=== PATIENT | female | born 1935 | race Caucasian/White ===

== ENCOUNTER 2024-11-01 11:32 | Emergency (ER) | payer MEDICARE, BC, SELFPAY ==
[2024-11-01 11:36] VITALS: BP 138/80; BMI 26.2
[2024-11-01] MEDS: TYLENOL 1000 MG PO (13:14)
[2024-11-01 13:39] LABS: % Basophils 0.3 % (0-2); % Immature Granulocytes 0.9 % (0-0.5); % Monocytes 8.2 % (1.7-9.3); % Neutrophils 86.6 % (42.2-75.2); Absolute Immature Granulocytes 0.1 10^3/uL (0-0.05); Absolute Lymphocytes 0.6 10^3/uL (1.2-3.4); Absolute Monocytes 1.3 10^3/uL (0.1-0.6); Absolute Neutrophils 13.5 10^3/uL (1.4-6.5); Hematocrit 38.1 % (37.0-47.0); Hemoglobin 13.3 g/dL (12.0-16.0); Mean Corp Hgb Conc. 34.9 g/dL (33.0-37.0); Mean Corpuscular Hgb 32.9 pg (27.0-31.0); Mean Corpuscular Volume 94.3 fL (81.0-99.0); Mean Platelet Volume 9.2 fL (7.4-10.4); Nucleated Red Blood Cells % 0 %; Platelet Count 257 10^3/uL (130-400); Red Blood Cell Count 4.04 10^6/uL (4.20-5.40); Red Cell Dist. Width 12.6 % (11.5-14.5); White Blood Cell Count 15.6 10^3/uL (4.8-10.8)
--- NOTE | 2024-11-01 13:42 | ED.GENMED ---
History of Present Illness
General
Chief Complaint: Fall
Time Seen by Provider: 11/01/24 12:05
History of Present Illness
History of Present Illness:
89-year-old female with history of high blood pressure presenting to the emergency department after a fall. Patient notes chronic urinary incontinence. She got out of bed this morning and could not make it to the bathroom. She started peeing on
the rug and got upset so she tried to jimenez to the bathroom. She subsequently fell and struck her left ribs on a dresser. Denies head injury or loss of consciousness. She is not on any blood thinners. Reports pain with deep inspiration. Denies
fever. Denies chest pain or difficulty breathing. Does note for the past few weeks she has been feeling generally unwell. Denies abdominal pain. She did not have any medications for pain prior to arrival. Denies additional injuries from the fall
Phy Exam
Physical Exam
Physical Exam:
General: Well-appearing, no clinical signs of dehydration, nontoxic and in no acute distress
HEENT: protecting airway
Neck: appears supple
CV: Normal heart rate, irregularly irregular rhythm
Resp: No accessory muscle use, no increased work of breathing, lungs clear to auscultation bilaterally. Splinting secondary to pain with palpable tenderness to the upper mid axillary region of the left ribs. No ecchymosis or laceration
Abd: Soft and non-distended, no tenderness to palpation
Extremities: No deformities, no swelling
Neuro: alert, no focal neurologic deficit
: deferred
Rectal: deferred
Psych: Normal affect
Skin: Intact
Scores
[id number] Score for Afib Stroke Risk
Age in Years (65=0, 65-74=1, >/=75=2): > or = 75
Sex (Female=+1): Female
Congestive Heart Failure History (Yes=+1): No
Hypertension History (Yes=+1): Yes
Stroke/TIA/Thromboembolism History (Yes=+2): No
Vascular Disease History (Yes=+1): No
Diabetes Mellitus (Yes=+1): No
Score: 4
Anticoagulation Recommendations: Recommend anticoagulation (as validated in nonvalvular fib)
Course
Orders/Labs/Results
Orders:
Orders
11/01/24 13:13
Electrocardiogram (*1) Urgent
Reason for Study: Palpitations
EKG- Treatment ONCE
Acetaminophen [Tylenol] 1,000 mg .ROUTE .STK-MED ONE
Acetaminophen [Tylenol] 1,000 mg PO NOW STA
Acetaminophen [Tylenol] 1,000 mg PO NOW STA
CR Ribs-left 3 Vw W/pa Chest Urgent
Comment:
Reason For Exam: fall, pain
11/01/24 13:15
Complete Blood Count/With Diff Urgent
Comprehensive Metabolic Panel Urgent
11/01/24 14:43
UA Reflex to Culture [Urinalysis Reflex To Culture] Urgent
Date Specimen was Collected: 11/01/24
Time Specimen was Collected: 14:30
Urine Microscopic Reflex Cult Urgent
Urine Culture Urgent
ARA Source: U
Specimen Description:
Date Specimen was Collected: 11/01/24
Time Specimen was Collected: 14:30
11/01/24 15:34
Apixaban [Eliquis] 5 mg PO ONCE ONE
Cephalexin Monohydrate [Keflex] 500 mg PO NOW STA
Oxycodone/Acetaminophen [Percocet 5/325] 1 tablet PO NOW STA
11/01/24 15:35
Incentive Spirometry [Rx Incentive Spirometry] [RESP] Urgent
Frequency: q1h while awake
Abnormal Lab Results
11/01/24 11/01/24
13:15 14:43
WBC 15.6 H 10^3/uL
(4.8-10.8)
RBC 4.04 L 10^6/uL
(4.20-5.40)
MCH 32.9 H pg
(27.0-31.0)
Abs Immat Gran (auto) 0.1 H 10^3/uL
(0-0.05)
Absolute Neuts (auto) 13.5 H 10^3/uL
(1.4-6.5)
Absolute Lymphs (auto) 0.6 L 10^3/uL
(1.2-3.4)
Absolute Monos (auto) 1.3 H 10^3/uL
(0.1-0.6)
Immature Gran % 0.9 H %
(0-0.5)
Neutrophils % 86.6 H %
(42.2-75.2)
Lymphocytes % 4.0 L %
(20.5-51.1)
Sodium 128 L mmol/L
(135-145)
Chloride 93 L mmol/L
(98-107)
BUN 18 H mg/dl
(7-17)
Glucose 136 H mg/dl
(70-99)
Ur Occult Blood Reflex 4+ A
(Negative)
Urine Nitrite (Reflex) Positive A
(Negative)
Leukocyte Esterase Rfl 3+ A
(Negative)
Urine RBC 7-10 A /HPF
(0-2)
Urine WBC (Reflex) 11-15 A /HPF
(0-5)
Urine Bacteria (Reflex) Many A
(Negative)
Urine Albumin (Reflex) 3+ A
(Neg - Trace)
11/01/24 13:15
11/01/24 13:15
Vital Signs
Initial and Last Documented VS:
Initial Vital Signs
Temp Pulse Resp BP Pulse Ox
98 F 87 22 138/80 95
11/01/24 11:36 11/01/24 11:36 11/01/24 11:36 11/01/24 11:36 11/01/24 11:36
Last Documented Vital Signs
Temp Pulse Resp BP Pulse Ox
98 F 87 22 138/80 95
11/01/24 11:36 11/01/24 11:36 11/01/24 11:36 11/01/24 11:36 11/01/24 11:36
MDM/Problems Addressed
MDM/Problems Addressed:
89-year-old female with history of high blood pressure presenting after a fall onto her left ribs with subsequent pain. Vital signs on arrival significant for mild tachypnea.
On exam, patient is resting comfortably, no acute distress, slightly uncomfortable secondary to pain. Patient with generalized tenderness to the upper left mid axillary rib region. Concern for rib contusion versus rib fracture. No additional
signs of trauma. Patient denies any head injury or loss of consciousness. Incidentally, patient noted to be in A-fib on the monitor. No prior history. Does note that she has been feeling generally unwell for the past few weeks, has been tested
for COVID and flu, negative. Will obtain laboratory analysis and EKG. Will also obtain rib series.
15:30 -patient noted to have 2 rib fractures, consistent with symptoms. No pneumothorax. Also noted to be slightly hyponatremic at 128, suspected concomitant dehydration. Regarding new onset a flutter, [id number] score is 4, indicated
recommendation for anticoagulation. Did discuss with cardiology, in agreement for anticoagulation, holding on any antiarrhythmics given that heart rate is controlled. Discussed with and patient in detail regarding her rib fractures and
atrial fibrillation/flutter. Regarding the rib fractures, advised extra trying Tylenol primarily for pain, advised against ibuprofen given that she is being started on Eliquis. For severe pain, will prescribe low-dose Percocet at patient's
request, however did caution against somnolence, fall risk now on anticoagulation. Patient verbalized understanding. Will provide incentive spirometry. Regarding the atrial fibrillation, advising outpatient cardiology follow-up with cardiology
information provided. Eliquis sent to pharmacy and coupon provided for 1 free month. Strict return precautions were communicated to patient and at bedside verbalized understanding
*EKG
Interpreted by ED Provider?: Yes
EKG Intrepretation Date: 11/01/24
EKG Intrepretation Time: 13:49
Interpretation: abnormal
Comparison EKG: no comparison EKG present
Heart Rate: 91
Rate: normal
Rhythm: atrial flutter
[place]: normal axis
QRS Pattern: normal QRS
Ischemia: no ischemia
*Critical Care Note
Total Time (30-74mins, 75-104mins- exclusive of procedures): Not Applicable
ED Attending Note
-
Portions of this chart may have been created with voice recognition software.� Occasional wrong word or��sound alike� substitutions may have occurred due to the inherent limitations of voice recognition software.
Discharge Plan
Departure
Patient with high blood pressure during this ER visit?: No
Condition: Fair
Discharge Problem:
Atrial fibrillation/flutter, Ribs, multiple fractures
Instructions: Atrial fibrillation and atrial flutter - ED discharge instructions, Rib fracture or bruised rib - ED discharge instructions
Prescriptions:
New
cephalexin 500 mg capsule
500 mg PO Q12H 7 Days Qty: 14 0RF
oxycodone-acetaminophen [Percocet] 2.5-325 mg tablet
1 tab PO Q8H PRN (Reason: Pain) Qty: 9 0RF
Eliquis 5 mg tablet
5 mg PO BID Qty: 60 0RF
Referrals:
Walker Alonzo MD [Active] - (atrial fibrillation)
UNKNOWN - PT DOES,NOT KNOW [Family Provider] -
Activity Restrictions/Additional Instructions:
You were seen in the emergency department for a fall
You were found to have 2 rib fractures on your left side. Please continue to take pain medications as needed. Use your incentive spirometry to recruit appropriate lung movement bilaterally. Incidentally, you were found to be in atrial
fibrillation. 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 You were started on Eliquis to prevent formation of blood clots. Please take this medication twice a day as directed. You were also prescribed Percocet for your rib pain. Please be
cautious in taking this medication which can cause somnolence or lightheadedness.
Please follow-up closely with your primary care physician.
Return to the emergency department for any worsening of your symptoms, or any development of chest pain, difficulty breathing, abdominal pain with persistent vomiting and inability to tolerate food or liquid by mouth (concern for dehydration),
weakness, headache or confusion, fever greater than 100.4, or any additional symptoms that are concerning to you.
Thank you for choosing [facility].
Interventions
Interventions:
*Risk Screen - Suicide Last Done: 11/01/24 11:36
*General Assessment Last Done: 11/01/24 11:36
*Neglect/Abuse Screening Last Done: 11/01/24 11:36
ED-Musculoskeletal Assessment Last Done: 11/01/24 12:02
ED- Neurological Assessment Last Done: 11/01/24 12:02
ED-Skin Assessment Last Done: 11/01/24 12:02
Discharge Date and Time
Print Language: GREENLANDIC
[2024-11-01 13:48] LABS: ALT (SGPT) 22 U/L (0-35); AST (SGOT) 28 U/L (14-36); Albumin 3.8 g/dl (3.5-5.0); Alkaline Phosphatase 102 U/L (38-126); Blood Urea Nitrogen 18 mg/dl (7-17); Calcium 9.5 mg/dl (8.4-10.2); Carbon Dioxide 25 mmol/L (22-30); Chloride 93 mmol/L (98-107); Estimated Creatinine Clearance 34 ml/min; Glucose 136 mg/dl (70-99); Potassium 3.9 mmol/L (3.5-5.1); Sodium 128 mmol/L (135-145); Total Bilirubin 1.1 mg/dl (0.2-1.3); Total Protein 6.3 g/dl (6.3-8.2); eGFR > 60.00
[2024-11-01 14:58] LABS: Urine Albumin 3+ (Neg - Trace); Urine Bilirubin Negative (Negative); Urine Character Slightly Cloudy (Clear); Urine Color Yellow; Urine Glucose Negative (Negative); Urine Ketone Negative (Negative); Urine Leukocyte 3+ (Negative); Urine Nitrite Positive (Negative); Urine Occult Blood 4+ (Negative); Urine Urobilinogen Negative (Neg - 1+)
[2024-11-01 15:15] LABS: Urine Mucus Many
[2024-11-01 15:16] LABS: Urine Amorphous Seen
[2024-11-01 15:17] LABS: Urine Bacteria Many (Negative)
[2024-11-01] MEDS: PERCOCET 5/325 1 TABLET PO (16:05)
[2024-11-01] MEDS: ELIQUIS 5 MG PO (16:05)
[2024-11-01] MEDS: KEFLEX 500 MG PO (16:05)
== END 2024-11-01 16:43 | disposition home or self-care (01) ==
LOC: EMR 11:32
PROVIDERS: EMERGENCY PHYSICIAN Student in an Organized Health Care Education/Training Program
DX: S22.42XA Multiple fractures of ribs, left side, initial encounter for closed fracture (principal); W01.190A Fall on same level from slipping, tripping and stumbling with subsequent striking against furniture, initial encounter; I48.91 Unspecified atrial fibrillation; I48.92 Unspecified atrial flutter
CPT/HCPCS: 99285; 71101; 80053; 81003; 81015; 85025; 87086; 87088; 87186; 93005

== ENCOUNTER → 2024-12-03 11:02 | Outpatient (REF) | payer MEDICARE, BC, SELFPAY | LOC: HWRCS 11:02 | PROVIDERS: ATTENDING PHYSICIAN Internal Medicine; FAMILY PHYSICIAN Internal Medicine | DX: I48.0 Paroxysmal atrial fibrillation (principal); R01.1 Cardiac murmur, unspecified | CPT/HCPCS: 93306 ==

== ENCOUNTER 2025-04-05 02:46 | Inpatient (IN) | payer MEDICARE, BC, SELFPAY ==
[2025-04-04 19:17] VITALS: BP 175/94
[2025-04-04 19:48] LABS: Urine Character Clear (Clear)
[2025-04-04 19:49] LABS: Hematocrit 35.1 % (37.0-47.0); Hemoglobin 12.7 g/dL (12.0-16.0); Mean Corp Hgb Conc. 36.2 g/dL (33.0-37.0); Mean Corpuscular Volume 91.4 fL (81.0-99.0); Nucleated Red Blood Cells % 0 %; Platelet Count 164 10^3/uL (130-400); Red Cell Dist. Width 12.1 % (11.5-14.5)
[2025-04-04 19:55] LABS: Urine Squamous Cell 0-2 /LPF (Few)
[2025-04-04 19:56] LABS: Urine White Cell 21-25 /HPF (0-5)
[2025-04-04 20:00] LABS: ALT (SGPT) 19 U/L (0-35); AST (SGOT) 29 U/L (14-36); Albumin 4.2 g/dl (3.5-5.0); Alkaline Phosphatase 95 U/L (38-126); Blood Urea Nitrogen 25 mg/dl (7-17); Calcium 10.0 mg/dl (8.4-10.2); Carbon Dioxide 22 mmol/L (22-30); Chloride 99 mmol/L (98-107); Glucose 107 mg/dl (70-99); Potassium 3.9 mmol/L (3.5-5.1); Sodium 128 mmol/L (135-145); Total Protein 6.7 g/dl (6.3-8.2); eGFR > 60.00
[2025-04-04] MEDS: NSS 1000 IV (23:48)
--- NOTE | 2025-04-04 23:50 | ED.GENMED ---
History of Present Illness
<Stacey Galo DO, Resident - Last Filed: 04/05/25 15:12>
General
Chief Complaint: Urinary Symptoms
Source: patient
Time Seen by Provider: 04/04/25 23:02
History of Present Illness
History of Present Illness:
Patient is an 89 yo female with PMH of afib on eliquis, recurrent UTIs and chronic urinary incontinence presenting with a UTI and b/l abdominal pain on Day 3 of Macrobid prescribed by urologist. Patients symptoms continued to worsen while on
Macrobid.
Past History
<Stacey Galo DO, Resident - Last Filed: 04/05/25 15:12>
Past History
ED Past Medical History: Arrthythmia
Review of Systems
<Stacey Galo DO, Resident - Last Filed: 04/05/25 15:12>
Review of Systems
Constitutional: Reports chills
EENT: Reports no symptoms
Respiratory: Reports no symptoms
Cardiac: Reports no symptoms
ABD/GI: Reports abdominal pain (b/l on sides) and nausea (this morning)
: Reports dysuria and incontinence
Neurological: Reports no symptoms
Phy Exam
<Stacey Galo DO, Resident - Last Filed: 04/05/25 15:12>
General Physical Exam
General Presentation: no apparent distress
General age: appears stated age
General Skin: warm and dry
General Mental: alert
Cardiovascular Exam
Cardiovascular Exam: regular rate/rhythm
Heart Sounds: normal
Pulmonary Exam
Pulmonary Exam: lungs clear, no respiratory distress, no crackles and no wheezing
Gastrointestinal Exam
Gastrointestinal Exam: normal bowel sounds, non tender, soft and non distended
Neurological Exam
Neurological Exam: alert and oriented x3
Course
<Stacey Galo DO, Resident - Last Filed: 04/05/25 15:12>
Orders/Labs/Results
Orders:
Orders
04/04/25 19:40
Complete Blood Count/With Diff Urgent
Comprehensive Metabolic Panel Urgent
Urinalysis Reflex To Culture Urgent
Date Specimen was Collected: 04/04/25
Time Specimen was Collected: 19:22
Urine Microscopic Reflex Cult Urgent
Urine Culture Urgent
ARA Source: U
Specimen Description:
Date Specimen was Collected: 04/04/25
Time Specimen was Collected: 19:22
04/04/25 23:25
0.9% Sodium Chloride 1000 ml [Nss] 1,000 ml IV BOLUS
04/04/25 23:54
Lactic Acid Urgent
Blood Culture Q30M
ARA Source: Blood/Venous
Specimen Description:
04/05/25 00:05
CT Abd/pelvis W Iv Cont Stat
Comment:
Reason For Exam: abdominal pain
04/05/25 00:23
Bladder Scan- Treatment ONCE
04/05/25 01:33
Gentamicin Sulfate [Gentamicin] 130 mg 0.9% Sodium Chloride [Nss] 50 ml IV NOW
04/05/25 02:21
Admit/Transfer Patient As Directed
Co-Sign Provider:
Level of Care: Inpatient admission
Assign to:: Medical/Surgical
Physician / Group: Wilder
Diagnosis: Pyelonephritis
Reason for Hospitalization: Pyelonephritis
Expected length of stay greater than two midnights?: Yes
ELOS- Estimated Length of Stay in days: 2
I certify the patient meets the requirements for IP care: Yes
04/05/25 02:22
Code Status As Directed
Resuscitation Status: Full Code
PRN Pain Medication Management As Directed
May give lesser potent ordered pain med per pt: Yes
preference::
Protocol:: Medication orders for pain may be administered in a
manner that supports deferring to patient preference
when the pt is:
- Requesting an ordered lesser potent pain medication.
Least to most potent pain medications are defined
as: acetaminophen < NSAID < tramadol < opioids
(morphine, oxycodone, hydromorphone).
- Requesting a lesser dose of the same medication IF
ORDERED.
- Requesting a less intrusive route of administration
if both routes are prescribed by the provider (PO <
IV).
04/05/25 03:08
0.9% Sodium Chloride 1000 ml [Nss] 1,000 ml IV 100 mls/hr
Acetaminophen [Tylenol] 650 mg PO Q4HPRN PRN
04/05/25 03:08
Consult Notification Routine
Specialty to Notify: Infectious Disease
Date consulting provider notified: 04/05/25
Time consulting provider notified: 07:42
Notified:: Provider
INFECTIOUS DISEASE CONSULT Routine
Consulting Provider: Myriam Celestin
Was physician already notified: No
Reason for consult: Pyelo, Resistant E coli.
Activity As Directed
Activity Level: Ambulate
With Assistance
I/O [Intake/ Output] As Directed
Frequency: Per unit guidelines
Vital Signs As Directed
Frequency: Per unit guidelines
Weight As Directed
Frequency: Daily
Oxygen Therapy [O2 Therapy] [RESP] Routine
Titrate/Wean O2 to maintain O2 sat greater than (%): 94
04/05/25 04:00
Meropenem [Merrem] 500 mg IV Q6H
04/05/25 Breakfast
Regular
At Your Request: Limited, Water Pollution Control Technician Required
Does patient need a safe tray?: No
04/05/25 06:05
Basic Metabolic Panel IN AM
Complete Blood Count/No Diff IN AM
04/05/25 08:00
Amlodipine [Norvasc] 2.5 mg PO DAILY
Apixaban [Eliquis] 5 mg PO BID
Atorvastatin [Lipitor] 10 mg PO DAILY
Valsartan [Diovan] 160 mg PO DAILY
04/05/25 11:24
Blood Culture Q30M
ARA Source: Blood/Venous
Specimen Description:
Abnormal Lab Results
04/04/25
19:40
WBC 15.8 H 10^3/uL
(4.8-10.8)
RBC 3.84 L 10^6/uL
(4.20-5.40)
Hct 35.1 L %
(37.0-47.0)
MCH 33.1 H pg
(27.0-31.0)
Abs Immat Gran (auto) 0.1 H 10^3/uL
(0-0.05)
Absolute Neuts (auto) 13.6 H 10^3/uL
(1.4-6.5)
Absolute Lymphs (auto) 0.4 L 10^3/uL
(1.2-3.4)
Absolute Monos (auto) 1.7 H 10^3/uL
(0.1-0.6)
Neutrophils % 85.7 H %
(42.2-75.2)
Lymphocytes % 2.8 L %
(20.5-51.1)
Monocytes % 10.8 H %
(1.7-9.3)
Sodium 128 L mmol/L
(135-145)
BUN 25 H mg/dl
(7-17)
Glucose 107 H mg/dl
(70-99)
Ur Occult Blood Reflex 3+ A
(Negative)
Leukocyte Esterase Rfl 2+ A
(Negative)
Urine RBC 11-15 A /HPF
(0-2)
Urine WBC (Reflex) 21-25 A /HPF
(0-5)
Urine Bacteria (Reflex) Moderate A
(Negative)
Urine Albumin (Reflex) 3+ A
(Neg - Trace)
04/04/25 19:40
04/04/25 19:40
Vital Signs
Initial and Last Documented VS:
Initial Vital Signs
Temp Pulse Resp BP Pulse Ox
100.4 F H 108 16 175/94 94
04/04/25 19:17 04/04/25 19:17 04/04/25 19:17 04/04/25 19:17 04/04/25 19:17
Last Documented Vital Signs
Temp Pulse Resp BP Pulse Ox
98.3 F 95 17 160/80 94
04/05/25 14:12 04/05/25 14:12 04/05/25 14:12 04/05/25 14:12 04/05/25 14:12
<Rashmi Johnson, DO - Last Filed: 04/05/25 01:44>
Orders/Labs/Results
Orders:
Orders
04/04/25 19:40
Complete Blood Count/With Diff Urgent
Comprehensive Metabolic Panel Urgent
Urinalysis Reflex To Culture Urgent
Date Specimen was Collected: 04/04/25
Time Specimen was Collected: 19:22
Urine Microscopic Reflex Cult Urgent
Urine Culture Urgent
ARA Source: U
Specimen Description:
Date Specimen was Collected: 04/04/25
Time Specimen was Collected: 19:22
04/04/25 23:25
0.9% Sodium Chloride 1000 ml [Nss] 1,000 ml IV BOLUS
04/04/25 23:54
Lactic Acid Urgent
Blood Culture Q30M
ARA Source: Blood/Venous
Specimen Description:
04/05/25 00:05
CT Abd/pelvis W Iv Cont Stat
Comment:
Reason For Exam: abdominal pain
04/05/25 00:23
Bladder Scan- Treatment ONCE
04/05/25 01:33
Gentamicin Sulfate [Gentamicin] 130 mg 0.9% Sodium Chloride [Nss] 50 ml IV NOW
04/05/25 02:21
Admit/Transfer Patient As Directed
Co-Sign Provider:
Level of Care: Inpatient admission
Assign to:: Medical/Surgical
Physician / Group: Wilder
Diagnosis: Pyelonephritis
Reason for Hospitalization: Pyelonephritis
Expected length of stay greater than two midnights?: Yes
ELOS- Estimated Length of Stay in days: 2
I certify the patient meets the requirements for IP care: Yes
04/05/25 02:22
Code Status As Directed
Resuscitation Status: Full Code
PRN Pain Medication Management As Directed
May give lesser potent ordered pain med per pt: Yes
preference::
Protocol:: Medication orders for pain may be administered in a
manner that supports deferring to patient preference
when the pt is:
- Requesting an ordered lesser potent pain medication.
Least to most potent pain medications are defined
as: acetaminophen < NSAID < tramadol < opioids
(morphine, oxycodone, hydromorphone).
- Requesting a lesser dose of the same medication IF
ORDERED.
- Requesting a less intrusive route of administration
if both routes are prescribed by the provider (PO <
IV).
04/05/25 03:08
0.9% Sodium Chloride 1000 ml [Nss] 1,000 ml IV 100 mls/hr
Acetaminophen [Tylenol] 650 mg PO Q4HPRN PRN
04/05/25 03:08
Consult Notification Routine
Specialty to Notify: Infectious Disease
Date consulting provider notified: 04/05/25
Time consulting provider notified: 07:42
Notified:: Provider
INFECTIOUS DISEASE CONSULT Routine
Consulting Provider: Myriam Celestin
Was physician already notified: No
Reason for consult: Pyelo, Resistant E coli.
Activity As Directed
Activity Level: Ambulate
With Assistance
I/O [Intake/ Output] As Directed
Frequency: Per unit guidelines
Vital Signs As Directed
Frequency: Per unit guidelines
Weight As Directed
Frequency: Daily
Oxygen Therapy [O2 Therapy] [RESP] Routine
Titrate/Wean O2 to maintain O2 sat greater than (%): 94
04/05/25 04:00
Meropenem [Merrem] 500 mg IV Q6H
04/05/25 Breakfast
Regular
At Your Request: Limited, Water Pollution Control Technician Required
Does patient need a safe tray?: No
04/05/25 06:05
Basic Metabolic Panel IN AM
Complete Blood Count/No Diff IN AM
04/05/25 08:00
Amlodipine [Norvasc] 2.5 mg PO DAILY
Apixaban [Eliquis] 5 mg PO BID
Atorvastatin [Lipitor] 10 mg PO DAILY
Valsartan [Diovan] 160 mg PO DAILY
04/05/25 11:24
Blood Culture Q30M
ARA Source: Blood/Venous
Specimen Description:
Abnormal Lab Results
04/04/25
19:40
WBC 15.8 H 10^3/uL
(4.8-10.8)
RBC 3.84 L 10^6/uL
(4.20-5.40)
Hct 35.1 L %
(37.0-47.0)
MCH 33.1 H pg
(27.0-31.0)
Abs Immat Gran (auto) 0.1 H 10^3/uL
(0-0.05)
Absolute Neuts (auto) 13.6 H 10^3/uL
(1.4-6.5)
Absolute Lymphs (auto) 0.4 L 10^3/uL
(1.2-3.4)
Absolute Monos (auto) 1.7 H 10^3/uL
(0.1-0.6)
Neutrophils % 85.7 H %
(42.2-75.2)
Lymphocytes % 2.8 L %
(20.5-51.1)
Monocytes % 10.8 H %
(1.7-9.3)
Sodium 128 L mmol/L
(135-145)
BUN 25 H mg/dl
(7-17)
Glucose 107 H mg/dl
(70-99)
Ur Occult Blood Reflex 3+ A
(Negative)
Leukocyte Esterase Rfl 2+ A
(Negative)
Urine RBC 11-15 A /HPF
(0-2)
Urine WBC (Reflex) 21-25 A /HPF
(0-5)
Urine Bacteria (Reflex) Moderate A
(Negative)
Urine Albumin (Reflex) 3+ A
(Neg - Trace)
04/04/25 19:40
04/04/25 19:40
Vital Signs
Initial and Last Documented VS:
Initial Vital Signs
Temp Pulse Resp BP Pulse Ox
100.4 F H 108 16 175/94 94
04/04/25 19:17 04/04/25 19:17 04/04/25 19:17 04/04/25 19:17 04/04/25 19:17
Last Documented Vital Signs
Temp Pulse Resp BP Pulse Ox
98.3 F 95 17 160/80 94
04/05/25 14:12 04/05/25 14:12 04/05/25 14:12 04/05/25 14:12 04/05/25 14:12
<Stacey Galo DO, Resident - Last Filed: 04/05/25 15:12>
*Pulse Oximetry
SaO2: 94
Oxygen Mode of Delivery: Room air
Patient hypoxic: no
*Critical Care Note
Total Time (30-74mins, 75-104mins- exclusive of procedures): Not Applicable
ED Attending Note
<Stacey Galo DO, Resident - Last Filed: 04/05/25 15:12>
-
Portions of this chart may have been created with voice recognition software.� Occasional wrong word or��sound alike� substitutions may have occurred due to the inherent limitations of voice recognition software.
<Rashmi Johnson DO - Last Filed: 04/05/25 01:44>
ED Attending Note
Patient seen and examined by attending physician: Yes
I performed the substantive portion of visit, reviewed & personally made and approve the management plan that is documented in note by myself or [place].: Yes
ED Attending Note:
89-year-old woman who resides with her at [facility]. She has history of PAF, incidentally found during ED visit October of this year after suffering a mechanical fall, nondisplaced rib fractures. Was placed on
Eliquis which she continues. She also has history of frequent UTIs, urinary incontinence and follows with urology, Dr. Selina Pickard.
She has had UTI symptoms that began a week ago, urinalysis and urine culture from urologist earlier in the week and was started on Macrobid 2 days ago.
Urine culture returned today positive for multidrug-resistant E. coli. Resistant to cephalosporins, quinolones, most penicillins however sensitive to Zosyn, sensitive to gentamicin and sensitive to Macrobid. Patient was called today and
recommended to continue Macrobid however she presents tonight with complaints of intermittent chills and shakes that began over the weekend, worse tonight and she also notes bilateral lateral flank discomfort that began yesterday, worse today and
more so on the left. Intermittent brief nausea but has had no vomiting.
No prior history of pyelonephritis nor kidney stones.
Patient noted to be febrile upon arrival to the ED 100.4 �F. Mildly tachycardic. Mildly hypertensive.
89-year-old woman appears her stated age, awake and alert, pleasant, oriented x 3, appears in no acute distress.
Oral mucosa is moist.
Heart is mildly tachycardic
Lungs are clear to auscultation. No respiratory distress.
Abdomen is soft, nondistended, minimal tenderness suprapubic region with questionably mildly distended bladder, no definitive CVA tenderness bilaterally.
Patient presents with persistent UTI symptoms, recent urine culture positive for multidrug-resistant E. coli and thus far no improvement in symptoms despite 48 hours of Macrobid.
Concern for pyelonephritis, sepsis, other consideration is ureteral obstruction/ureteral stone.
Concern for urinary obstruction/bladder outlet obstruction. Will check postvoid residual with bladder scan.
Will initiate IV fluids. Will check CT abdomen and pelvis.
Will check lactic acid, urine culture, blood cultures.
Labs thus far reveal elevated white blood cell count of 15.8.
Chemistries show mild hyponatremia of 128, similar hyponatremia noted in October. Normal creatinine with mildly elevated BUN of 25.
Urinalysis shows moderate bacteria, 20-25 WBCs, 11-15 RBCs +2 leukocyte Estrace.
Due to advanced age, fever, essentially has failed outpatient antibiotics, patient will require IV antibiotics and hospitalization.
Postvoid bladder scan shows 120 cc in the bladder. Mild retention but certainly not requiring Willard catheter.
CAT scan shows mild bladder wall thickening as well as faint left ureteral enhancement and subtle asymmetric left perinephric stranding concerning for pyelonephritis on the left. There is also concern for heterogenous enhancement in the
contralateral right kidney which may reflect bilateral pyelonephritis. No evidence of stones nor obstruction.
Upon review of E. coli sensitivities on recent urine culture will give an IV dose of gentamicin.
Resistant to all cephalosporins. Sensitive to Zosyn thus could consider a trial of Zosyn versus patch test/penicillin sensitivity test. Will discuss with hospitalist.
Discharge Plan
Departure
Patient Disposition: Admit
Date of Disposition: 04/05/25
Time of Disposition: 01:40
Admit to: Med/Surg
Admit to doctor: Wilder
Presentation/result/management discussed w/ accepting MD/DO: Hospitalist
Condition: Fair
Discharge Problem:
Acute pyelonephritis, Fever, rule out sepsis
Interventions
Interventions:
*Risk Screen - Suicide Last Done: 04/04/25 19:17
*General Assessment Last Done: 04/04/25 19:17
*Neglect/Abuse Screening Last Done: 04/04/25 19:17
*ED- Fall Risk Assessment Last Done: 04/04/25 19:17
*ED COVID-19 Vaccine History Last Done: 04/04/25 19:17
*Nursing Disposition Last Done: 04/05/25 11:21
ED-Female Genitourinary Assessment Last Done: 04/05/25 00:02
Discharge Date and Time
Discharge Date/Time: 04/05/25 11:22
[2025-04-04 23:57] VITALS: BP 129/50
[2025-04-05] VITALS (8 sets, daily range): BP systolic 117–162; BP diastolic 52–80; BMI 26.5
[2025-04-05] MEDS: GENTAMICIN 53.25 MG IV (02:04)
--- NOTE | 2025-04-05 02:27 | HPS.HSE ---
Family Physician
-
Family Physician: Patti Iraheta
Chief Complaint
-
Dysuria, Fevers / Chills
History of Present Illness
Patient is an 89y F with PMH significant for OAB, recurrent UTI, A-Fib and hypertension who presents to ED complaining of dysuria, frequency and flank pain. Patient states that she started with urinary symptoms last week. She was seen by her
physician and started on Macrobid on Friday for UTI. Her symptoms have not improved since that time. She spoke with her physician today who recommended ED evaluation based on outpatient culture (04/04) which showed resistant E coli.
Patient reports intermittent fevers / chills. No N/V. She has pain bilaterally beneath the ribs - mostly laterally more than true 'flank pain'.
She states that she is chronically incontinent.
No GI complaints.
Medical History
Past Medical History
Past Medical History: Reports Other
Additional Past Medical History:
Paroxysmal Atrial Fibrillation
Hypertension
Chronic Incontinence
OAB
Recurrent UTI / Interstitial Cystitis
Past Surgical History: Reports Other
Additional Past Surgical History:
Right TKA
JENARO
Hemorrhoidectomy
Social History
Tobacco: Former Smoker (Quit smoking 45y ago.)
Alcohol: None
Drug: None
Family History
Family History: Not pertinent
Allergies / Home Medications
Allergies reflects when Allergies were last updated in [facility].
Home Medications with original date entered in [facility]
Allergy/Medication List:
Allergies
Allergy/AdvReac Type Severity Reaction Status Date / Time
amitriptyline (From Elavil) Allergy Unknown Verified 11/01/24 11:35
levofloxacin (From Levaquin) Allergy Unknown Verified 11/01/24 11:35
Penicillins Allergy Unknown Verified 11/01/24 11:35
sulfamethoxazole (From Allergy Unknown Verified 11/01/24 11:35
Bactrim)
trimethoprim (From Bactrim) Allergy Unknown Verified 11/01/24 11:35
vancomycin Allergy Unknown Verified 11/01/24 11:35
Home Medications
apixaban 5 mg tablet (Eliquis) 5 mg PO BID #60 tabs 11/01/24
amlodipine 2.5 mg tablet 2.5 mg PO DAILY 04/05/25
atorvastatin 10 mg tablet 10 mg PO DAILY 04/05/25
triamterene 37.5 mg-hydrochlorothiazide 25 mg capsule 1 cap PO DAILY 04/05/25
valsartan 160 mg tablet (Diovan) 160 mg PO DAILY 04/05/25
Review of Systems
-
History Source: Patient
A 12 point ROS was completed and negative except as noted: Yes
Constitutional: Reports Fever, Fatigue and Chills
Respiratory: Denies Cough or Trouble Breathing
Cardiac: Denies Chest Pain or Palpitations
Abdomen/GI: Denies Abdominal Pain, Nausea, Vomiting or Diarrhea
: Reports Dysuria, Frequency, Flank Pain and Incontinence; Denies Bleeding
Musculoskeletal: Denies Joint Pain or Edema
Neurological: Denies Dizzy or Headache
Physical Exam
Vital Signs
Vital Signs
Temp Pulse Resp BP Pulse Ox
100.4 F H 108 16 154/76 94
04/04/25 19:17 04/04/25 19:17 04/04/25 19:17 04/05/25 01:17 04/05/25 01:17
Physical Exam
General: Other (89y F in no acute distress. Hard of hearing.)
HEENT: Moist mucous membranes and PERRLA
Respiratory: Clear; No Wheezes, Rales or Rhonchi
Cardiac: S1/S2, Regular Rhythm and Murmur (II/ LIBORIO)
GI: Soft, Non Tender, Non Distended and Normal Bowel Sounds
Genito-urinary: Other (Pos L CVAT.)
Musculoskeletal: No Clubbing, No Cyanosis and Other (Chronic venous stasis with non-pitting edema.)
Neuro: AO x 3
Laboratory Results
-
04/04/25 19:40
04/04/25 19:40
Laboratory Results
Lactic Acid 1.7 mmol/L (0.7-2.0) 04/04/25 23:54
Total Bilirubin 1.2 mg/dl (0.2-1.3) 04/04/25 19:40
AST 29 U/L (14-36) 04/04/25 19:40
ALT 19 U/L (0-35) 04/04/25 19:40
Alkaline Phosphatase 95 U/L (38-126) 04/04/25 19:40
Impression/Plan
-
A/P: Patient is an 89y F with PMH significant for A-Fib, hypertension and OAB who presents to ED complaining of urinary symptoms and fevers.
Pyelonephritis
Sepsis secondary to the above
- Admit for further evaluation and treatment.
- Patient presents with fever, leukocytosis, tachycardia and UA / symptoms consistent with infection.
- Outpatient record includes urinary culture from 04/04 showing > 100k CFU of E coli with multiple resistances.
- Sensitive to: Ertapenem, meropenem, nitrofurantoin and Bactrim.
- Patient reports allergies to PCN and Bactrim - but cannot recall reactions as it was 'a long time ago'.
- Nitrofurantoin has been ineffective after 48+ hours of treatment.
- Will try meropenem for now and monitor for clinical improvement or any reaction / intolerance.
- ID evaluation for additional recommendations.
- Follow-up repeat culture data.
- IVFs, supportive care.
Hyponatremia
- Apparently chronic with same Na level (128) noted in October.
- Would stop Dyazide.
- Follow for changes with IVF overnight (for sepsis not hyponatremia).
Paroxysmal Atrial Fibrillation
- Stable. Continue Eliquis for stroke risk reduction.
Benign Hypertension
- Stable. Continue outpatient regimen - excepting Dyazide - adjust as needed.
DVT Prophylaxis: On Eliquis
Code Status: Full
[2025-04-05] MEDS: NSS 1000 IV (04:22)
[2025-04-05] MEDS: STERILE WATER FOR INJECTION 10 ML IV ×4 (04:23→21:24)
[2025-04-05] MEDS: MERREM 500 MG IV ×4 (04:23→21:24)
[2025-04-05] MEDS: TYLENOL 650 MG PO (04:29)
[2025-04-05 06:22] LABS: Hematocrit 31.3 % (37.0-47.0); Hemoglobin 11.2 g/dL (12.0-16.0); Mean Corp Hgb Conc. 35.8 g/dL (33.0-37.0); Mean Corpuscular Volume 92.6 fL (81.0-99.0); Platelet Count 156 10^3/uL (130-400); Red Cell Dist. Width 12.2 % (11.5-14.5)
[2025-04-05 06:51] LABS: Blood Urea Nitrogen 17 mg/dl (7-17); Calcium 8.7 mg/dl (8.4-10.2); Carbon Dioxide 23 mmol/L (22-30); Chloride 102 mmol/L (98-107); Glucose 115 mg/dl (70-99); Potassium 3.6 mmol/L (3.5-5.1); Sodium 129 mmol/L (135-145); eGFR > 60.00
[2025-04-05] MEDS: DIOVAN 160 MG PO (09:57)
[2025-04-05] MEDS: ELIQUIS 5 MG PO ×2 (09:59→21:23)
--- NOTE | 2025-04-05 11:22 | CON.ID ---
Consultation
-
Date/Time Consultation Requested: April 05, 2025 0308
Date/Time Consultation Performed: April 05, 2025 1125
Requesting Provider: Dr. Luis Valadez
Performing Provider: Dr. Myriam Celestin
Reason for Consultation: Pyelonephritis, resistant E. coli
Chief Complaint / Past History
Chief Complaint
Fever
History of Present Illness
89-year-old female with history of paroxysmal atrial fibrillation, urinary incontinence, overactive bladder which she follows with urology who presented to the hospital last night due to fever and bilateral flank pain. She has history of recurrent
UTI with multidrug-resistant E. coli. She developed increased dysuria and frequency about a week ago. Her urologist put her on nitrofurantoin. However she continued to feel worse with onset of fevers, chills, malaise, and bilateral side pain. In
the ER temperature 100.5, white count of 15.8. CAT scan of the abdomen pelvis shows left perinephric stranding patient is currently on meropenem. Patient reports of flank pain have resolved today. She wants to go home because she cannot sleep in
the hospital. She reports remote history of lip swelling with penicillin. She could not recall reaction to sulfa but it was not serious. She states she is willing to try Bactrim again.
Past History
Additional Past Medical History:
Hypertension
Paroxysmal atrial fibrillation
Overactive bladder
Urinary incontinence
ESBL-Ecoli in urine
Additional Past Surgical History:
Right TKA
Hemorrhoidectomy
Total abdominal hysterectomy
Allergy History:
amitriptyline (From Elavil) Allergy (Verified 11/01/24 11:35)
Unknown
levofloxacin (From Levaquin) Allergy (Verified 11/01/24 11:35)
Unknown
Penicillins Allergy (Verified 11/01/24 11:35)
Unknown
sulfamethoxazole (From Bactrim) Allergy (Verified 11/01/24 11:35)
Unknown
trimethoprim (From Bactrim) Allergy (Verified 11/01/24 11:35)
Unknown
vancomycin Allergy (Verified 11/01/24 11:35)
Unknown
Medications Reviewed: Yes
Current Antibiotics:
Meropenem 500 mg IV every 6 hours
Social History
Tobacco: Former Smoker
Alcohol: None
Drug: None
Personal:
Family History
Family History: Not Pertinent
Review of Systems
Review of Systems
General: Fever, Chills and Change in Appetite
HEENT: Negative Sinus Problems or Headache
Cardiovascular: Negative Chest Pain
Respiratory: Negative Dyspnea or Cough
Gasteroenterology: Negative Nausea, Vomiting or Diarrhea
Genital / Urological: Dysuria and Flank Pain
Endocrine: Weakness
All systems: All other systems were reviewed and were negative
Vital Signs
Temp Pulse Resp BP Pulse Ox
98 F 65 16 118/66 95
04/05/25 07:00 04/05/25 09:57 04/05/25 08:16 04/05/25 09:57 04/05/25 08:16
Selected Entries
04/04/25
19:17 04/05/25
04:17
Temp 100.4 F H 100.5 F H
Physical Exam
Physical Exam
Constitutional: Acutely Ill
Eyes: No Conjunctival Hemorrhage and Sclera Anicteric
Cardiovascular: Regular Rate and S1/S2
Pulmonary: Clear
Gastrointestinal: Soft, Non Tender, Non Distended and Normal Bowel Sounds
Genito-Urinary: Negative CVA Tenderness
Extremities: Negative Edema
Neurological: AO x 3
Lab / Diagnostic Study Results
04/05/25 06:05
04/05/25 06:05
Abs Immat Gran (auto) 0.1 10^3/uL (0-0.05) H 04/04/25 19:40
Absolute Neuts (auto) 13.6 10^3/uL (1.4-6.5) H 04/04/25 19:40
Absolute Lymphs (auto) 0.4 10^3/uL (1.2-3.4) L 04/04/25 19:40
Absolute Monos (auto) 1.7 10^3/uL (0.1-0.6) H 04/04/25 19:40
Absolute Basos (auto) 0.1 10^3/uL (0-0.2) 04/04/25 19:40
Immature Gran % 0.3 % (0-0.5) 04/04/25 19:40
Neutrophils % 85.7 % (42.2-75.2) H 04/04/25 19:40
Lymphocytes % 2.8 % (20.5-51.1) L 04/04/25 19:40
Monocytes % 10.8 % (1.7-9.3) H 04/04/25 19:40
Eosinophils % 0.1 % (0-6) 04/04/25 19:40
Basophils % 0.3 % (0-2) 04/04/25 19:40
Lactic Acid 1.7 mmol/L (0.7-2.0) 04/04/25 23:54
Ur Squamous Epith Cells 0-2 /LPF (Few) 04/04/25 19:40
Microbiology Results
Micro:
04/04/25 23:54 Blood Culture - Pending
Blood/Venous
04/04/25 19:40 Urine Culture - Pending
Urine
04/05/25 CT a/p: There is mild urinary bladder wall thickening suspicious for cystitis. Additionally there is asymmetric left perinephric stranding with heterogeneity of the left kidney which likely represents pyelonephritis. There is no evidence of
obstructing renal calculus.
Assessment / Plan
# MDR- E. coli complicated UTI/pyelonephritis
# Fever
# Leukocytosis
- Review of 7/22/25 outside Ucx: E. coli resistant to cephalosporins, Zosyn, FQ, aminoglycosides, tetracycline. Sensitive to Ertapenem, meropenem, T/sulfa, nitrofurantoin.
- Await blood cultures and Ucx.
- Agree with meropenem.
- Trend temps/wbc.
- Convinced patient to stay in hospital as no effective oral abx option.
- When close to discharge, place midline for Ertapenem 1g IV q24h through 04/18/25.
Infusion sheet submitted to casework supervisor.
-Place in contact isolation
Care Review
Plan reviewed with: Physician (Dr. Valadez)
[2025-04-05] MEDS: DUONEB 3 ML INH (11:50)
--- NOTE | 2025-04-05 12:51 | CM ---
CM reviewed chart and met with pt bedside. Pt lives in AR apt at [facility] with her .
Independent in ADLs, personal care and ambulation. Uses rollator.
No hx VN or SNF.
PCP: Patti Iraheta
Pharmacy: [facility] [place] [facility]
Discharge plan: Anticipate home, watch for needs
--- NOTE | 2025-04-05 13:22 | PTCARENOTE ---
Reached out to MD Valadez about pt's need for 2L NC, wheezing, and new sob on exertion. Chest x ray and echo are now ordered. IVF stopped per order
--- NOTE | 2025-04-05 13:42 | W.PN.HOSP.TC ---
Today's Communication/Plan
-
IV abx
ID eval
Stop fluids
CXR, may require lasix
Assessment / Plan
Assessment / Plan
Physical Exam
General: Other (89y F in no acute distress. Hard of hearing.)
HEENT: Moist mucous membranes and PERRLA
Respiratory: Clear;b/l mild wheezing requiring o2 NC
Cardiac: S1/S2, Regular Rhythm and Murmur (II/ LIBORIO)
GI: Soft, Non Tender, Non Distended and Normal Bowel Sounds
Genito-urinary: Other (Pos L CVAT.)
Musculoskeletal: No Clubbing, No Cyanosis and Other (Chronic venous stasis with non-pitting edema.)
Neuro: AO x 3
A/P: Patient is an 89y F with PMH significant for A-Fib, hypertension and OAB who presents to ED complaining of urinary symptoms and fevers.
Pyelonephritis
Sepsis secondary to the above
- Admit for further evaluation and treatment.
- Outpatient record includes urinary culture from 04/04 showing > 100k CFU of E coli with multiple resistances.
- Sensitive to: Ertapenem, meropenem, nitrofurantoin and Bactrim.
- Patient reports allergies to PCN and Bactrim - but cannot recall reactions as it was 'a long time ago'.
- Nitrofurantoin has been ineffective after 48+ hours of treatment.
- Will try meropenem
- ID evaluation
- Follow-up repeat culture data.
- IVFs, supportive care.
Acute Hypoxia
-2L
-Stop Fluids
-wean o2 as tolerated
-F/u CXR
-proBNP 1300s
-May need IV diuretics for possible Acute HfPEF
-Estimated LVEF 60-65%. - ECHO 12/03/24
Hyponatremia
- Apparently chronic with same Na level (128) noted in October.
- Would stop Dyazide.
-Fluid restriction
-may need diuretics
Paroxysmal Atrial Fibrillation
- Stable. Continue Eliquis for stroke risk reduction.
Benign Hypertension
- Stable. Continue outpatient regimen - excepting Dyazide - adjust as needed.
DVT Prophylaxis: On Eliquis
Code Status: Full
Anticipated Discharge: 24 - 48 hours
Subjective/Interval History
-
Date of Service: April 05, 2025
wheezing requiring 2L
Objective Data
-
Labs:
Laboratory Results
04/05/25
06:05
WBC 13.5 H
Hgb 11.2 L
Hct 31.3 L
Plt Count 156
Sodium 129 L
Potassium 3.6
Chloride 102
Carbon Dioxide 23
BUN 17
Creatinine 0.7
Glucose 115 H
Calcium 8.7
Vital Signs:
Vital Signs
Temp Pulse Resp BP Pulse Ox
98 F 83 16 118/66 99
04/05/25 07:00 04/05/25 11:56 04/05/25 11:56 04/05/25 09:57 04/05/25 11:56
I&O
04/04/25 04/05/25 04/06/25
06:59 06:59 06:59
Intake Total 640 / 640
Balance 640 / 640
Review of Systems
-
History Source: Patient
All other systems: Not reviewed unless documented
Data Reviewed
-
CT Scan: Report Reviewed by me
Labs: Labs Reviewed by me
--- NOTE | 2025-04-05 14:12 | CM ---
Addendum entered by Julissa Carlson 04/05/25 14:47:
[facility] Liaison in to see patient today and do teaching. Patient with hands shaking possible due to being cold. Patient was able to connect perform the task and thinks she can do this at home. She stated her (who has Parkinsons) will be
able to administer. They are independent at home, spouse drives. Cheryl from [facility] is also reaching out to patients daughter in law, she is an occupational therapist and lives within 30 minutes of the patient. Patient says she can be the back
up. Mak will do teaching in the home . Cheryl will touch base with manager of case management in am to confirm details. Hopefully patient will be able to receive dose here and d/c home tomorrow.
[facility] is running insurance and pricing medications, midline will need to be placed in am.
Original Note:
Patient seen bedside.
Plan is for home with IV anbx.
Clinicals and script faxed to [facility], referral and script sent to [facility] for nursing.
[facility] to do teaching tomorrow.
Patient wants her spouse to learn the antibiotic administration.
Midline still needs to be placed.
Patient currently on oxygen.
Script placed on chart.
Plan: home with IV anbx thru [facility] and [facility] VN.
[2025-04-05] MEDS: LIPITOR 10 MG PO (21:24)
[2025-04-05] MEDS: NORVASC 2.5 MG PO (21:28)
[2025-04-05] MEDS: XANAX PO (21:29)
[2025-04-06] MEDS: TYLENOL 650 MG PO (02:18)
[2025-04-06 04:28] VITALS: BMI 26.2
[2025-04-06] MEDS: STERILE WATER FOR INJECTION 10 ML IV ×4 (04:51→20:51)
[2025-04-06] MEDS: MERREM 500 MG IV ×4 (04:51→20:51)
--- NOTE | 2025-04-06 06:17 | PTCARENOTE ---
Pt slept well overnight. Pt using the BSC with assist to void. Bed alarm in place, pt using call herrera appropriately. Pt very INUPIAT without hearing aids. Vital signs stable. Will continue to monitor.
[2025-04-06 07:55] VITALS: BP 117/59
[2025-04-06 08:57] LABS: Hematocrit 35.6 % (37.0-47.0); Hemoglobin 12.7 g/dL (12.0-16.0); Mean Corp Hgb Conc. 35.7 g/dL (33.0-37.0); Mean Corpuscular Volume 93.4 fL (81.0-99.0); Platelet Count 185 10^3/uL (130-400); Red Cell Dist. Width 12.3 % (11.5-14.5)
[2025-04-06] MEDS: DIOVAN 160 MG PO (09:30)
[2025-04-06] MEDS: ELIQUIS 5 MG PO ×2 (09:30→20:55)
--- NOTE | 2025-04-06 09:35 | W.PN.ID1 ---
Date of Service
Date of Service: April 06, 2025
Today's Communication
Repeat blood cx's.
Continue meropenem.
Assessment / Plan
# MDR- E. coli complicated UTI/pyelonephritis
# MDR-E. coli bacteremia
# Fever - resolving
# Leukocytosis - improving
- Review of 03/29/25 outside Ucx: E. coli resistant to cephalosporins, Zosyn, FQ, aminoglycosides, tetracycline. Sensitive to Ertapenem, meropenem, T/sulfa, nitrofurantoin.
- Repeat blood cx's today
- Continue meropenem.
- Trend temps/wbc.
- When close to discharge, place midline for Ertapenem 1g IV q24h through 04/18/25.
Infusion sheet submitted to [employer].
-Continue contact isolation
Chief Complaint
-: UTI and Bacteremia
Subjective / Review of Systems
Slept very well last night. Had sweats last night. Feels better today.
Vital Signs / Physical Exam
Vital Signs
Vital Signs
Temp Pulse Resp BP Pulse Ox
98.4 F 99 20 117/59 94
04/06/25 07:55 04/06/25 07:55 04/06/25 07:55 04/06/25 07:55 04/06/25 07:55
Physical Exam
Constitutional: No Acute Distress and Comfortable
Cardiovascular: Regular Rate and S1/S2
Pulmonary: Clear
Gastrointestinal: Soft, Non Tender, Non Distended and Normal Bowel Sounds
Genito-Urinary: Negative CVA Tenderness
Extremities: Negative Edema
Neurological: AO x 3
Objective Data
Lab Data
Lab Results
04/06/25 08:39
Lactic Acid 1.7 mmol/L (0.7-2.0) 04/04/25 23:54
Total Bilirubin 1.2 mg/dl (0.2-1.3) 04/04/25 19:40
AST 29 U/L (14-36) 04/04/25 19:40
ALT 19 U/L (0-35) 04/04/25 19:40
Alkaline Phosphatase 95 U/L (38-126) 04/04/25 19:40
Most recent labs reviewed.
Micro Results:
04/04/25 23:54 Blood Culture - Preliminary
Blood/Venous Positive culture in progress
Gram Stain - Preliminary
04/05/25 11:24 Blood Culture - Pending
Blood/Venous
04/04/25 19:40 Urine Culture - Pending
Urine
04/05/25 CT a/p: There is mild urinary bladder wall thickening suspicious for cystitis. Additionally there is asymmetric left perinephric stranding with heterogeneity of the left kidney which likely represents pyelonephritis. There is no evidence of
obstructing renal calculus.
[2025-04-06 09:51] LABS: ALT (SGPT) 17 U/L (0-35); AST (SGOT) 26 U/L (14-36); Albumin 3.5 g/dl (3.5-5.0); Alkaline Phosphatase 82 U/L (38-126); Blood Urea Nitrogen 16 mg/dl (7-17); Calcium 9.5 mg/dl (8.4-10.2); Carbon Dioxide 25 mmol/L (22-30); Chloride 100 mmol/L (98-107); Estimated Creatinine Clearance 38 ml/min; Glucose 106 mg/dl (70-99); Potassium 3.5 mmol/L (3.5-5.1); Sodium 130 mmol/L (135-145); Total Protein 5.9 g/dl (6.3-8.2); eGFR > 60.00
--- NOTE | 2025-04-06 10:19 | CM ---
Addendum entered by Julissa Carlson 04/06/25 13:56:
Per MD another 24-48 hours. Left VM for Bren/Mak and message sent to Cheryl/[facility].
Original Note:
Per [facility] patients IV anbx are covered 100% with her secondary insurance.
Await medical clearance and midline for d/c.
If patient is to be d/c today, would need to receive todays dose of antibiotic prior to d/c.
--- NOTE | 2025-04-06 12:37 | CM ---
Reviewed the chart notes and spoke with the patient at the bedside. IMM reviewed and copy provided to patient.
--- NOTE | 2025-04-06 13:23 | W.PN.HOSP.TC ---
Today's Communication/Plan
-
Await blood cultures repeated today
Assessment / Plan
Assessment / Plan
Physical Exam
General: Other (89y F in no acute distress. Hard of hearing.)
HEENT: Moist mucous membranes and PERRLA
Respiratory: Clear;b/l mild wheezing requiring o2 NC
Cardiac: S1/S2, Regular Rhythm and Murmur (II/ LIBORIO)
GI: Soft, Non Tender, Non Distended and Normal Bowel Sounds
Genito-urinary: Other (Pos L CVAT.)
Musculoskeletal: No Clubbing, No Cyanosis and Other (Chronic venous stasis with non-pitting edema.)
Neuro: AO x 3
A/P: Patient is an 89y F with PMH significant for A-Fib, hypertension and OAB who presents to ED complaining of urinary symptoms and fevers.
Pyelonephritis
Sepsis secondary to the above
- Admit for further evaluation and treatment.
- Outpatient record includes urinary culture from 04/04 showing > 100k CFU of E coli with multiple resistances.
- Sensitive to: Ertapenem, meropenem, nitrofurantoin and Bactrim.
- Patient reports allergies to PCN and Bactrim - but cannot recall reactions as it was 'a long time ago'.
- Nitrofurantoin has been ineffective after 48+ hours of treatment.
- Will try meropenem
- ID evaluation
- Follow-up repeat culture data.
- IVFs, supportive care.
Acute Hypoxia, resolved
-Stop Fluids
�I suspect atelectasis, deep improvement
� Now resolved
-Estimated LVEF 60-65%. - ECHO 12/03/24
Hyponatremia
- Apparently chronic with same Na level (128) noted in October.
- Would stop Dyazide.
-Fluid restriction
Paroxysmal Atrial Fibrillation
- Stable. Continue Eliquis for stroke risk reduction.
Benign Hypertension
- Stable. Continue outpatient regimen - excepting Dyazide - adjust as needed.
DVT Prophylaxis: On Eliquis
Code Status: Full
Anticipated Discharge: Within 24 hours
Subjective/Interval History
-
Date of Service: April 06, 2025
No acute events, respiratory status improved
Objective Data
-
Labs:
Laboratory Results
04/06/25
08:39
WBC 11.3 H
Hgb 12.7
Hct 35.6 L
Plt Count 185
Sodium 130 L
Potassium 3.5
Chloride 100
Carbon Dioxide 25
BUN 16
Creatinine 0.8
Glucose 106 H
Calcium 9.5
Total Bilirubin 0.8
AST 26
ALT 17
Alkaline Phosphatase 82
Vital Signs:
Vital Signs
Temp Pulse Resp BP Pulse Ox
98.4 F 99 20 117/59 94
04/06/25 07:55 04/06/25 07:55 04/06/25 07:55 04/06/25 07:55 04/06/25 08:03
I&O
04/05/25 04/06/25 04/07/25
06:59 06:59 06:59
Intake Total 640 / 640
Balance 640 / 640
Review of Systems
-
History Source: Patient
All other systems: Not reviewed unless documented
Data Reviewed
-
CT Scan: Report Reviewed by me
Labs: Labs Reviewed by me
--- NOTE | 2025-04-06 15:44 | VATNOTE ---
Order received to place midline for ABX until 04/18. This VAT RN spoke to Dr. Celestin b/c blood cultures were drawn today and are pending. Per Dr. Celestin, midline not to be placed today, possibly tomorrow if blood cultures are negative. Will assess
tomorrow.
[2025-04-06 16:05] VITALS: BP 123/66
[2025-04-06 17:21] VITALS: BP 115/50
[2025-04-06] MEDS: LIPITOR 10 MG PO (20:51)
[2025-04-06] MEDS: NORVASC 2.5 MG PO (20:51)
[2025-04-06] MEDS: XANAX 0.5 MG PO (20:51)
[2025-04-06] MEDS: COLACE 100 MG PO (21:54)
[2025-04-06 23:19] VITALS: BP 120/68
[2025-04-07] MEDS: MERREM 500 MG IV (03:25)
[2025-04-07] MEDS: STERILE WATER FOR INJECTION 10 ML IV (03:25)
[2025-04-07 06:51] LABS: Hematocrit 29.4 % (37.0-47.0); Hemoglobin 10.5 g/dL (12.0-16.0); Mean Corp Hgb Conc. 35.7 g/dL (33.0-37.0); Mean Corpuscular Volume 92.2 fL (81.0-99.0); Platelet Count 161 10^3/uL (130-400); Red Cell Dist. Width 12.1 % (11.5-14.5)
[2025-04-07 07:00] VITALS: BP 119/58
[2025-04-07] MEDS: DIOVAN 160 MG PO (08:19)
[2025-04-07] MEDS: COLACE 100 MG PO (08:19)
[2025-04-07] MEDS: ELIQUIS 5 MG PO (08:19)
[2025-04-07] MEDS: MIRALAX 17 GRAMS PO (08:19)
[2025-04-07 08:25] LABS: ALT (SGPT) 17 U/L (0-35); AST (SGOT) 26 U/L (14-36); Albumin 2.9 g/dl (3.5-5.0); Alkaline Phosphatase 64 U/L (38-126); Blood Urea Nitrogen 25 mg/dl (7-17); Calcium 8.8 mg/dl (8.4-10.2); Carbon Dioxide 24 mmol/L (22-30); Chloride 100 mmol/L (98-107); Estimated Creatinine Clearance 38 ml/min; Glucose 99 mg/dl (70-99); Potassium 3.4 mmol/L (3.5-5.1); Sodium 127 mmol/L (135-145); Total Protein 4.9 g/dl (6.3-8.2); eGFR > 60.00
[2025-04-07] MEDS: DUONEB 3 ML INH (08:34)
[2025-04-07] MEDS: KCL ELIXIR 40 MEQ PO (08:58)
[2025-04-07] MEDS: INVANZ 60 MG IV (10:20)
--- NOTE | 2025-04-07 11:51 | W.PN.ID1 ---
Date of Service
Date of Service: April 07, 2025
Today's Communication
- OK to place midline today.
- Ertapenem 1g IV q24h through 04/18/25.
Infusion sheet submitted to nurse case manager.
- OK to dc home when home IV abx set up.
Assessment / Plan
# MDR- E. coli complicated UTI/pyelonephritis
# MDR-E. coli bacteremia (1 of 2 sets)
# Fever - resolved
# Leukocytosis - resolved
- Review of 03/29/25 outside Ucx: E. coli resistant to cephalosporins, Zosyn, FQ, aminoglycosides, tetracycline. Sensitive to Ertapenem, meropenem, T/sulfa, nitrofurantoin.
- Repeat blood cx's x 2 neg 24h
- OK to place midline today.
- Replace meropenem with ertapenem
- Ertapenem 1g IV q24h through 04/18/25.
Infusion sheet submitted to nurse case manager.
- OK to dc home when home IV abx set up.
-Continue contact isolation
Chief Complaint
-: UTI and Bacteremia
Subjective / Review of Systems
No new complaints.
Vital Signs / Physical Exam
Vital Signs
Vital Signs
Temp Pulse Resp BP Pulse Ox
97.9 F 65 14 119/58 97
04/07/25 07:00 04/07/25 08:46 04/07/25 08:46 04/07/25 07:00 04/07/25 08:46
Physical Exam
Constitutional: No Acute Distress and Comfortable
Cardiovascular: Regular Rate and S1/S2
Pulmonary: Clear
Gastrointestinal: Soft, Non Tender, Non Distended and Normal Bowel Sounds
Genito-Urinary: Negative CVA Tenderness
Extremities: Negative Edema
Neurological: AO x 3
Objective Data
Lab Data
Lab Results
04/07/25 06:18
04/07/25 06:18
Estimated Creat Clear 38 ml/min 04/07/25 06:18
Lactic Acid 1.7 mmol/L (0.7-2.0) 04/04/25 23:54
Total Bilirubin 0.4 mg/dl (0.2-1.3) 04/07/25 06:18
AST 26 U/L (14-36) 04/07/25 06:18
ALT 17 U/L (0-35) 04/07/25 06:18
Alkaline Phosphatase 64 U/L (38-126) 04/07/25 06:18
Most recent labs reviewed.
Micro Results:
04/04/25 23:54 Blood Culture - Preliminary
Blood/Venous Escherichia coli - ESBL
Gram Stain - Preliminary
04/05/25 11:24 Blood Culture - Preliminary
Blood/Venous No Growth in 48 hours- Final report to follow
04/06/25 08:39 Blood Culture - Preliminary
Blood/Venous No Growth in 24 hours- Final report to follow
04/06/25 09:57 Blood Culture - Preliminary
Blood/Venous No Growth in 24 hours- Final report to follow
04/04/25 19:40 Urine Culture - Final
Urine No Significant Growth
04/05/25 CT a/p: There is mild urinary bladder wall thickening suspicious for cystitis. Additionally there is asymmetric left perinephric stranding with heterogeneity of the left kidney which likely represents pyelonephritis. There is no evidence of
obstructing renal calculus.
--- NOTE | 2025-04-07 12:37 | CM ---
Addendum entered by Julissa Carlson 04/07/25 14:57:
[facility] updated.
Original Note:
Midline cath info faxed to [facility] and [facility].
[facility] ready to begin tomorrow.
CM needs to touch base with [facility].
--- NOTE | 2025-04-07 13:03 | CM ---
Addendum entered by Radha Martinez 04/07/25 13:24:
IMM explained & placed in chart
spoke with & to transport
Original Note:
Patient seen at bedside
Referral in [facility] [place] for [place] antibiotics
Ertapenem 1 gm Q24hr through 04/18
midline information faxed to [facility]
spoke with Cheryl at [facility] - states they can deliver IV medication this evening
tt hospitalist
PLAN: home with [facility]/IV antibiotics
[facility] Fax #: [phone]
--- NOTE | 2025-04-07 13:33 | W.PN.HOSP.TC ---
Addendum entered and electronically signed by Luis Valadez MD 04/08/25 17:44:
[id number]
Original Note:
Today's Communication/Plan
-
Ertapenem
f/u cbc and bmp outpt
f/u id and pcp outpt
Assessment / Plan
Assessment / Plan
Physical Exam
General: Other (89y F in no acute distress. Hard of hearing.)
HEENT: Moist mucous membranes and PERRLA
Respiratory: Clear;b/l mild wheezing requiring o2 NC
Cardiac: S1/S2, Regular Rhythm and Murmur (II/ LIBORIO)
GI: Soft, Non Tender, Non Distended and Normal Bowel Sounds
Genito-urinary: Other (Pos L CVAT.)
Musculoskeletal: No Clubbing, No Cyanosis and Other (Chronic venous stasis with non-pitting edema.)
Neuro: AO x 3
A/P: Patient is an 89y F with PMH significant for A-Fib, hypertension and OAB who presents to ED complaining of urinary symptoms and fevers.
Pyelonephritis
Bacteremia
ESBL
Sepsis secondary to the above
- Admit for further evaluation and treatment.
- Outpatient record includes urinary culture from 04/04 showing > 100k CFU of E coli with multiple resistances.
- Sensitive to: Ertapenem, meropenem, nitrofurantoin and Bactrim.
- Patient reports allergies to PCN and Bactrim - but cannot recall reactions as it was 'a long time ago'.
- Nitrofurantoin has been ineffective after 48+ hours of treatment.
- Meropenem - switch to - Ertapenem 1g IV q24h through 04/18/25.
- ID evaluation outpatient
- IVFs, supportive care.
- F/u ID outpatient
Acute Hypoxia, resolved
-Stop Fluids
�I suspect atelectasis, derecruitment
� Now resolved
-Estimated LVEF 60-65%. - ECHO 12/03/24
Hyponatremia
- Apparently chronic with same Na level (128) noted in October.
- Would stop Dyazide.
-Fluid restriction
-F/u outpatient
Hypokalemia
-monitor and replete
-f/u outpatient
Paroxysmal Atrial Fibrillation
- Stable. Continue Eliquis for stroke risk reduction.
Benign Hypertension
- Stable. Continue outpatient regimen - excepting Dyazide - adjust as needed.
DVT Prophylaxis: On Eliquis
Code Status: Full
More than 30 minutes spent in discharge including
Final examination of the patient
Summarizing hospital stay
Instructions for continuing care to all relevant caregivers
Preparation of discharge records, prescriptions, and referral forms
Total time spent (in minutes): 36
Anticipated Discharge: Today
Subjective/Interval History
-
Date of Service: April 07, 2025
no acute events
Objective Data
-
Labs:
Laboratory Results
04/07/25
06:18
WBC 7.7
Hgb 10.5 L
Hct 29.4 L
Plt Count 161
Sodium 127 L
Potassium 3.4 L
Chloride 100
Carbon Dioxide 24
BUN 25 H
Creatinine 0.8
Glucose 99
Calcium 8.8
Total Bilirubin 0.4
AST 26
ALT 17
Alkaline Phosphatase 64
Vital Signs:
Vital Signs
Temp Pulse Resp BP Pulse Ox
97.9 F 65 14 119/58 97
04/07/25 07:00 04/07/25 08:46 04/07/25 08:46 04/07/25 07:00 04/07/25 08:46
I&O
04/06/25 04/07/25 04/08/25
06:59 06:59 06:59
Intake Total 640 / 640 480 / 480
Balance 640 / 640 480 / 480
Review of Systems
-
History Source: Patient
All other systems: Not reviewed unless documented
Data Reviewed
-
CT Scan: Report Reviewed by me
Labs: Labs Reviewed by me
--- NOTE | 2025-04-07 13:37 | W.DS.TRANS ---
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
-
Discharge Instructions:
Discharge Diagnosis/Procedures # MDR- E. coli complicated UTI/pyelonephritis
# MDR-E. coli bacteremia (1 of 2 sets)
Diet Low Fat,Regular
Activity As tolerated
Blood Work cbc and bmp in 1 week
Instructions:
Stand-Alone Forms:
Changes to Home Medications: Yes
Discharge Medications:
DC Medications w/original date entered in [employer]
apixaban 5 mg tablet (Eliquis) 5 mg PO BID #60 tabs 11/01/24
acetaminophen 325 mg tablet (Tylenol) 650 mg PO Q6HPRN PRN mild pain 04/05/25
alprazolam 0.5 mg tablet (Xanax) 0.5 mg PO HS 04/05/25
amlodipine 2.5 mg tablet 2.5 mg PO HS 04/05/25
docusate sodium 100 mg capsule (Colace) 200 mg PO DAILY 04/05/25
folic acid 1 mg tablet 1 mg PO DAILY 04/05/25
therapeutic multivitamin 1 tab PO DAILY 04/05/25
valsartan 160 mg tablet (Diovan) 160 mg PO QPM 04/05/25
Ertapenem [Invanz] 1,000 mg 120 mls/hr IV Q24H 04/07/25
atorvastatin 10 mg tablet 10 mg PO DAILY@1999 #0 tabs 04/07/25
Home Medication Changes
Ertapenem [Invanz] 1,000 mg 120 mls/hr IV Q24H 04/07/25
Pending Results: No
[2025-04-07 15:00] VITALS: BP 134/69
== END 2025-04-07 16:14 | disposition home health service (06) | DRG 872 ==
LOC: 3 WEST ACU 02:46
PROVIDERS: Emergency Medicine; ADMITTING PHYSICIAN Hospitalist; ATTENDING PHYSICIAN Internal Medicine; CONSULT PHYSICIAN Internal Medicine Infectious Disease; EMERGENCY PHYSICIAN Emergency Medicine; FAMILY PHYSICIAN Internal Medicine
DX: A41.51 Sepsis due to Escherichia coli [E. coli] (principal); E87.1 Hypo-osmolality and hyponatremia; N10 Acute pyelonephritis; J98.11 Atelectasis; Z16.24 Resistance to multiple antibiotics; I10 Essential (primary) hypertension; I48.0 Paroxysmal atrial fibrillation; N32.81 Overactive bladder; R09.02 Hypoxemia; E87.6 Hypokalemia; Z79.01 Long term (current) use of anticoagulants; Z79.899 Other long term (current) drug therapy; Z87.440 Personal history of urinary (tract) infections; Z87.891 Personal history of nicotine dependence; Z88.0 Allergy status to penicillin; Z88.3 Allergy status to other anti-infective agents
CPT/HCPCS: 71046; 74177; 80048; 80053; 81003; 81015; 83605; 83880; 85025; 85027; 87040; 87077; 87086; 87154; 87186; 87205; 94640; J1335; Q9967

== ENCOUNTER 2025-04-12 12:14 | Emergency (ER) | payer MEDICARE, BC, SELFPAY ==
--- NOTE | 2025-04-12 12:27 | EDRN ---
Pt to BR just post arrival.
--- NOTE | 2025-04-12 12:28 | ED.GENMED ---
History of Present Illness
<Yazan Ward, DO - Last Filed: 04/12/25 12:56>
General
Chief Complaint: Abnormal Lab Value
Time Seen by Provider: 04/12/25 12:27
<Jeff Nugent MD, Resident - Last Filed: 04/12/25 13:07>
General
Source: patient
Exam Limitations: none
Nursing documentation reviewed up to this point in time: agreed with
History of Present Illness
History of Present Illness:
89-year-old female with a past medical history of hypertension, GERD, and recent hospitalization for acute pyelonephritis, comes in to the ED due to an abnormal lab value. She was told this morning that her Hgb was 5.5 from labwork drawn yesterday.
He is asymptomatic and has no weakness or light headedness. She was told to stop her Eliquis this morning as well as her blood pressure medications.
Past History
<Jeff Nugent MD, Resident - Last Filed: 04/12/25 13:07>
Past History
ED Past Medical History: Arrthythmia, HTN and Hypercholesterolemia
Social History
Tobacco: Former smoker
Alcohol: None
Drug: None
Personal:
Living: correction
Review of Systems
<Jeff Nugent MD, Resident - Last Filed: 04/12/25 13:07>
Review of Systems
Allergies reviewed?: Yes
All Other Systems: ROS reviewed and negative except as documented in HPI and ROS
Phy Exam
<Jeff Nugent MD, Resident - Last Filed: 04/12/25 13:07>
General Physical Exam
General Presentation: well appearing and no apparent distress
General Skin: warm and dry
General Habitus: normal
General Mental: alert
Cardiovascular Exam
Cardiovascular Exam: regular rate/rhythm, no edema and no murmur
Pulmonary Exam
Pulmonary Exam: lungs clear, no respiratory distress and no crackles
Gastrointestinal Exam
Gastrointestinal Exam: normal bowel sounds, non tender, soft and non distended
Skin Exam
Skin Exam: normal color, warm/dry and no petechia
Course
<Yazan Ward, DO - Last Filed: 04/12/25 12:56>
Orders/Labs/Results
Orders:
Orders
04/12/25 12:24
IV Insert/Care/Rem.- Treatment PRN
04/12/25 12:33
Type And Crossmatch [Type+Screen] Urgent
Complete Blood Count/With Diff Urgent
Comprehensive Metabolic Panel Urgent
04/12/25 12:39
ABO2 Urgent
BBK Wristband Number:
Associate notified that ABO2 has been ordered: [id number]
Date: 04/12/25
Time: 12:39
Watch Dial Maker ID: [id number]
Abnormal Lab Results
04/12/25
12:33
RBC 3.69 L 10^6/uL
(4.20-5.40)
Hgb 11.8 L g/dL
(12.0-16.0)
Hct 35.4 L %
(37.0-47.0)
MCH 32.0 H pg
(27.0-31.0)
Absolute Monos (auto) 0.8 H 10^3/uL
(0.1-0.6)
Immature Gran % 0.6 H %
(0-0.5)
Lymphocytes % 20.4 L %
(20.5-51.1)
Monocytes % 13.3 H %
(1.7-9.3)
04/12/25 12:33
Vital Signs
Initial and Last Documented VS:
Initial Vital Signs
Temp Pulse Resp Pulse Ox
98.5 F 71 20 98
04/12/25 12:29 04/12/25 12:29 04/12/25 12:29 04/12/25 12:29
Last Documented Vital Signs
Temp Pulse Resp BP Pulse Ox
98.5 F 71 20 169/65 97
04/12/25 12:29 04/12/25 12:29 04/12/25 12:29 04/12/25 12:35 04/12/25 12:35
<Jeff Nugent MD, Resident - Last Filed: 04/12/25 13:07>
Orders/Labs/Results
Orders:
Orders
04/12/25 12:24
IV Insert/Care/Rem.- Treatment PRN
04/12/25 12:33
Type And Crossmatch [Type+Screen] Urgent
Complete Blood Count/With Diff Urgent
Comprehensive Metabolic Panel Urgent
04/12/25 12:39
ABO2 Urgent
BBK Wristband Number:
Associate notified that ABO2 has been ordered: [id number]
Date: 04/12/25
Time: 12:39
Watch Dial Maker ID: [id number]
Abnormal Lab Results
04/12/25
12:33
RBC 3.69 L 10^6/uL
(4.20-5.40)
Hgb 11.8 L g/dL
(12.0-16.0)
Hct 35.4 L %
(37.0-47.0)
MCH 32.0 H pg
(27.0-31.0)
Absolute Monos (auto) 0.8 H 10^3/uL
(0.1-0.6)
Immature Gran % 0.6 H %
(0-0.5)
Lymphocytes % 20.4 L %
(20.5-51.1)
Monocytes % 13.3 H %
(1.7-9.3)
04/12/25 12:33
Vital Signs
Initial and Last Documented VS:
Initial Vital Signs
Temp Pulse Resp Pulse Ox
98.5 F 71 20 98
04/12/25 12:29 04/12/25 12:29 04/12/25 12:29 04/12/25 12:29
Last Documented Vital Signs
Temp Pulse Resp BP Pulse Ox
98.5 F 71 20 169/65 97
04/12/25 12:29 04/12/25 12:29 04/12/25 12:29 04/12/25 12:35 04/12/25 12:35
<Jeff Nugent MD, Resident - Last Filed: 04/12/25 13:07>
MDM/Problems Addressed
Differential Diagnosis Includes:
Acute blood loss anemia
MDM/Problems Addressed:
89 year old female comes to the ED due to being told she has an abnormal Hgb (5.5)
CBC drawn in the ED shows that her Hgb is actually 11.8.
Patient says that her blood yesterday was drawn from her PICC line that she has for her IV abx (for 12 weeks)
Abnormality was due to improper drawing of labs most likely
Will send patient home as there is no concern for active bleed and she is asymptomatic
<Jeff Nugent MD, Resident - Last Filed: 04/12/25 13:07>
*Pulse Oximetry
SaO2: 97
Oxygen Mode of Delivery: Room air
Patient hypoxic: no
*Critical Care Note
Total Time (30-74mins, 75-104mins- exclusive of procedures): Not Applicable
ED Attending Note
<Yazan Ward DO - Last Filed: 04/12/25 12:56>
ED Attending Note
Patient seen and examined by attending physician: Yes
I performed a history and physical exam of patient and discussed management with resident, I reviewed resident's note and agree with documented findings and plan of care.: Yes
ED Attending Note:
Seen with resident examined independently 89-year-old female referred to the ER due to anemia she has had no rectal bleeding, feels well, does have a PICC line, blood was drawn from that apparently here her color looks normal she is nontoxic
hemoglobin noted, suspect her outpatient lab was an error likely drawn from her PICC line
<Jeff Nugent MD, Resident - Last Filed: 04/12/25 13:07>
-
Portions of this chart may have been created with voice recognition software.� Occasional wrong word or��sound alike� substitutions may have occurred due to the inherent limitations of voice recognition software.
Discharge Plan
Departure
Patient Disposition: Home (Routine Discharge)
Date of Disposition: 04/12/25
Time of Disposition: 13:04
Patient with high blood pressure during this ER visit?: Yes
Condition: Good
Discharge Problem:
Anemia
Instructions: BLOOD PRESSURE
Prescriptions:
No Action
Eliquis 5 mg tablet
5 mg PO BID Qty: 60 0RF
amlodipine 2.5 mg Tablet
2.5 mg PO HS
valsartan [Diovan] 160 mg Tablet
160 mg PO QPM
acetaminophen [Tylenol] 325 mg Tablet
650 mg PO Q6HPRN PRN (Reason: mild pain)
therapeutic multivitamin Tablet
1 tab PO DAILY
alprazolam [Xanax] 0.5 mg Tablet
0.5 mg PO HS
docusate sodium [Colace] 100 mg Capsule
200 mg PO DAILY
folic acid 1 mg Tablet
1 mg PO DAILY
Ertapenem [Invanz] 1000 MG
0.9% Sodium Chloride [Nss] 50 ML
120 mls/hr IV Q24H
Ordered By: Luis Valadez MD
Last Taken: Unknown
atorvastatin 10 mg Tablet
10 mg PO DAILY@1999 Qty: 0 0RF
Activity Restrictions/Additional Instructions:
As discussed, your abnormal lab value was most likely due to a lab draw error.
Please come back to the ER if you develop any light headedness, notice any increased bleeding, or have any fever or chills
Interventions
Interventions:
*Risk Screen - Suicide Last Done: 04/12/25 12:29
*General Assessment Last Done: 04/12/25 12:45
*Neglect/Abuse Screening Last Done: 04/12/25 12:35
*ED- Fall Risk Assessment Last Done: 04/12/25 12:45
*ED COVID-19 Vaccine History Last Done: 04/12/25 12:45
Discharge Date and Time
Print Language: [place]
[2025-04-12 12:34] VITALS: BP 169/65
[2025-04-12 12:35] VITALS: BP 169/65
--- NOTE | 2025-04-12 12:36 | EDRN ---
ED Resident MD DR. Nugent in room w/ pt at this time.
[2025-04-12 12:41] LABS: Hematocrit 35.4 % (37.0-47.0); Hemoglobin 11.8 g/dL (12.0-16.0); Mean Corp Hgb Conc. 33.3 g/dL (33.0-37.0); Mean Corpuscular Volume 95.9 fL (81.0-99.0); Nucleated Red Blood Cells % 0 %; Platelet Count 273 10^3/uL (130-400); Red Cell Dist. Width 12.2 % (11.5-14.5)
[2025-04-12 12:45] VITALS: BMI 26.6
[2025-04-12 13:00] VITALS: BP 150/69
[2025-04-12 13:07] LABS: ALT (SGPT) 23 U/L (0-35); AST (SGOT) 28 U/L (14-36); Albumin 3.9 g/dl (3.5-5.0); Alkaline Phosphatase 95 U/L (38-126); Blood Urea Nitrogen 15 mg/dl (7-17); Calcium 10.1 mg/dl (8.4-10.2); Carbon Dioxide 27 mmol/L (22-30); Chloride 105 mmol/L (98-107); Estimated Creatinine Clearance 50 ml/min; Glucose 90 mg/dl (70-99); Potassium 3.9 mmol/L (3.5-5.1); Sodium 137 mmol/L (135-145); Total Protein 6.4 g/dl (6.3-8.2); eGFR > 60.00
== END 2025-04-12 13:55 | disposition home or self-care (01) ==
LOC: EMR 12:14
PROVIDERS: EMERGENCY PHYSICIAN Emergency Medicine; FAMILY PHYSICIAN Internal Medicine
DX: D64.9 Anemia, unspecified (principal); I10 Essential (primary) hypertension; K21.9 Gastro-esophageal reflux disease without esophagitis; E78.00 Pure hypercholesterolemia, unspecified; Z87.891 Personal history of nicotine dependence
CPT/HCPCS: 99282; 80053; 85025; 86850; 86900; 86901

== ENCOUNTER 2025-08-16 19:45 | Emergency (ER) | payer MEDICARE, BC, SELFPAY ==
[2025-08-16] VITALS (8 sets, daily range): BP systolic 154–206; BP diastolic 67–101
[2025-08-16 20:30] LABS: Hematocrit 37.6 % (37.0-47.0); Hemoglobin 12.7 g/dL (12.0-16.0); Mean Corp Hgb Conc. 33.8 g/dL (33.0-37.0); Mean Corpuscular Volume 90.8 fL (81.0-99.0); Nucleated Red Blood Cells % 0 %; Platelet Count 221 10^3/uL (130-400); Red Cell Dist. Width 13.0 % (11.5-14.5)
[2025-08-16] MEDS: APRESOLINE 5 MG IV (20:38)
[2025-08-16 20:59] LABS: ALT (SGPT) 19 U/L (0-35); AST (SGOT) 29 U/L (14-36); Albumin 4.3 g/dl (3.5-5.0); Alkaline Phosphatase 75 U/L (38-126); Blood Urea Nitrogen 12 mg/dl (7-17); Calcium 9.7 mg/dl (8.4-10.2); Carbon Dioxide 28 mmol/L (22-30); Chloride 105 mmol/L (98-107); Estimated Creatinine Clearance 56 ml/min; Glucose 98 mg/dl (70-99); Potassium 4.0 mmol/L (3.5-5.1); Sodium 136 mmol/L (135-145); Total Protein 7.0 g/dl (6.3-8.2); eGFR > 60.00
[2025-08-16 21:25] LABS: Urine Character Clear (Clear)
[2025-08-16] MEDS: TRANDATE 10 MG IV (21:32)
[2025-08-16 21:39] LABS: Urine Squamous Cell 26-30 /LPF (Few)
[2025-08-16 21:42] LABS: Urine White Cell 0-2 /HPF (0-5)
[2025-08-16] MEDS: TYLENOL 650 MG PO (22:10)
--- NOTE | 2025-08-16 23:42 | ED.GENMED ---
History of Present Illness
General
Chief Complaint: Headache
Time Seen by Provider: 08/16/25 19:52
History of Present Illness
History of Present Illness:
Mar is an 89-year-old female presenting from an assisted living facility with headache that began about an hour prior to arrival and associated high blood pressure. Reports that headache came on out of nowhere while at rest. Denies any nausea
or vomiting. Took her blood pressure medication tonight but blood pressure remains elevated. No chest pain or shortness of breath. No double vision or blurry vision.
Past History
Past History
ED Past Medical History: Arrthythmia, HTN and Hypercholesterolemia
Social History
Tobacco: Former smoker
Alcohol: None
Drug: None
Personal:
Living: care home
Phy Exam
General Physical Exam
General Presentation: well appearing and no apparent distress
General Skin: warm and dry
General Habitus: normal
General Mental: alert
General Hydration: appears well hydrated
ENT Exam
ENT Exam: EOMI, pharynx normal, neck supple and normocephalic
Eye Exam
Eye Exam: PERRL, cornea clear and conjunctiva normal
Cardiovascular Exam
Cardiovascular Exam: regular rate/rhythm, no edema, no murmur and normal peripheral pulses
Pulmonary Exam
Pulmonary Exam: lungs clear, no respiratory distress, no rales, no crackles, no rhonchi, no stridor, no wheezing and no cough
Gastrointestinal Exam
Gastrointestinal Exam: normal bowel sounds, non tender, soft, no organomegaly, no pulsatile mass and non distended
Neurological Exam
Neurological Exam: alert, oriented x3, no motor deficits and speech normal
Musculoskeletal Exam
Musculoskeletal Exam: full ROM and no edema
Skin Exam
Skin Exam: normal color, warm/dry, no rash and no petechia
Psychiatric Exam
Psychiatric Exam: normal mood/affect
Course
Orders/Labs/Results
Orders:
Orders
08/16/25 19:50
Electrocardiogram (*1) Urgent
Reason for Study: Hypertension, Benign
08/16/25 19:51
EKG- Treatment ONCE
08/16/25 20:22
Complete Blood Count/With Diff Urgent
Comprehensive Metabolic Panel Urgent
08/16/25 20:30
CT Head W/o Iv Contrast Urgent
Comment:
Reason For Exam: headache, HTN
08/16/25 20:34
HydrALAZINE [Apresoline] 5 mg IV NOW STA
08/16/25 21:18
Urinalysis Urgent
Date Specimen was Collected: 08/16/25
Time Specimen was Collected: 21:14
Urine Microscopic Urgent
Date Specimen was Collected: 08/16/25
Time Specimen was Collected: 21:14
08/16/25 21:27
Labetalol HCl [Trandate] 10 mg IV NOW STA
08/16/25 22:03
Acetaminophen [Tylenol] 650 mg PO NOW STA
Abnormal Lab Results
08/16/25 08/16/25
20:22 21:18
RBC 4.14 L 10^6/uL
(4.20-5.40)
Absolute Monos (auto) 1.0 H 10^3/uL
(0.1-0.6)
Lymphocytes % 18.6 L %
(20.5-51.1)
Monocytes % 14.7 H %
(1.7-9.3)
Urine Occult Blood 1+ A
(Negative)
Urine RBC 3-6 A /HPF
(0-2)
Urine Bacteria Few A
(Negative)
Urine Albumin 1+ A
(Neg - Trace)
08/16/25 20:22
08/16/25 20:22
Vital Signs
Initial and Last Documented VS:
Initial Vital Signs
Pulse Resp BP
81 20 180/101
08/16/25 19:50 08/16/25 19:50 08/16/25 19:50
Last Documented Vital Signs
Temp Pulse Resp BP Pulse Ox
36.9 C 69 17 154/69 97
08/16/25 19:51 08/16/25 22:00 08/16/25 22:00 08/16/25 22:00 08/16/25 23:43
MDM/Problems Addressed
Differential Diagnosis Includes:
Patient hypertensive to 190 systolic on arrival. Given 5 of IV hydralazine with no improvement in blood pressure. CT head obtained and negative for any intracranial hemorrhage. Given p.o. Tylenol with improvement in headache. Given the blood
pressure remains over 200 systolic now we will give 10 of IV labetalol. On reevaluation blood pressure is improved and patient reports improvement in her headache. Discussed need for good blood pressure control in the outpatient setting. She will
follow-up with her primary care provider regarding this. Encouraged her to keep a log of blood pressures to take to her outpatient appointment. Return precautions discussed.
*Pulse Oximetry
SaO2: 97
Oxygen Mode of Delivery: Room air
Patient hypoxic: no
*Critical Care Note
Total Time (30-74mins, 75-104mins- exclusive of procedures): Not Applicable
ED Attending Note
-
Portions of this chart may have been created with voice recognition software.� Occasional wrong word or��sound alike� substitutions may have occurred due to the inherent limitations of voice recognition software.
Discharge Plan
Departure
Patient Disposition: Home (Routine Discharge)
Date of Disposition: 08/16/25
Time of Disposition: 21:49
Patient with high blood pressure during this ER visit?: Yes
Discharge Problem:
Hypertension, Headache
Instructions: Headache, Adult (DC), BLOOD PRESSURE
Prescriptions:
No Action
Eliquis 5 mg tablet
5 mg PO BID Qty: 60 0RF
amlodipine 2.5 mg Tablet
2.5 mg PO HS
valsartan [Diovan] 160 mg Tablet
160 mg PO QPM
acetaminophen [Tylenol] 325 mg Tablet
650 mg PO Q6HPRN PRN (Reason: mild pain)
therapeutic multivitamin Tablet
1 tab PO DAILY
alprazolam [Xanax] 0.5 mg Tablet
0.5 mg PO HS
docusate sodium [Colace] 100 mg Capsule
200 mg PO DAILY
folic acid 1 mg Tablet
1 mg PO DAILY
Ertapenem [Invanz] 1000 MG
0.9% Sodium Chloride [Nss] 50 ML
120 mls/hr IV Q24H
Ordered By: Luis Valadez MD
Last Taken: Unknown
atorvastatin 10 mg Tablet
10 mg PO DAILY@1999 Qty: 0 0RF
Referrals:
Patti Iraheta DO [Family Provider, Internal Medicine]
Activity Restrictions/Additional Instructions:
Please follow-up with your primary care physician regarding your high blood pressure. Keep a log of your blood pressure at home and take this with you to your primary care doctor. Continue to take Tylenol for any headaches. Return to the ER for
sudden severe headaches or any other concerning symptom. Urine test in the ER was negative for any infection
Interventions
Interventions:
*Risk Screen - Suicide Last Done: 08/16/25 20:09
*General Assessment Last Done: 08/16/25 20:09
*Neglect/Abuse Screening Last Done: 08/16/25 20:09
*ED COVID-19 Vaccine History Last Done: 08/16/25 19:51
*ED Influenza Vaccine History Last Done: 08/16/25 19:51
[facility] Fall Risk Assessment Tool Last Done: 08/16/25 20:11
*Nursing Disposition Last Done: 08/16/25 23:05
ED- Neurological Assessment Last Done: 08/16/25 22:13
Discharge Date and Time
Discharge Date/Time: 08/16/25 23:06
Print Language: MAORI
== END 2025-08-16 23:06 | disposition home or self-care (01) ==
LOC: EMR 19:45
PROVIDERS: Surgery Trauma Surgery; EMERGENCY PHYSICIAN Emergency Medicine; FAMILY PHYSICIAN Internal Medicine
DX: I10 Essential (primary) hypertension (principal); R51.9 Headache, unspecified; E78.00 Pure hypercholesterolemia, unspecified; Z87.891 Personal history of nicotine dependence
CPT/HCPCS: 99284; 96374; 96375; 70450; 80053; 81003; 81015; 85025; 93005